=== PATIENT | female | born 1950 | race Caucasian/White ===

== ENCOUNTER → 2020-08-24 | Outpatient (CLI) | payer MEDICARE ==
--- NOTE | 2020-08-24 13:26 | RADIOLOGY REPORT (SQ) ---
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 Images reviewed with lung, soft tissue and bone windows. Reconstructed coronal and sagittal MPR and MIP images reviewed. All images stored on PACS. All CT scanners at this facility use dose modulation, iterative reconstruction, and/or weight based d osing when appropriate to reduce radiation dose to as low as reasonably achievable (ALARA). [facility]: Dose Right [facility]: CareDose [facility]: Dose Right [facility]: Teradose 4D [facility]: [employer] CONTRAST TYPE AND DOSE: 100 mL Omnipaque 300- low osmolar. RENAL FUNCTION: Not recorded here. Refer to the technologist's notes. RADIATION DOSE: . LIMITATIONS: None. FINDINGS: LUNGS AND PLEURA: There is a 7.8 x 4.3 mm nodule in the lingula that is stable. Stable 4 mm nodule in the posterior aspect of the left lower lobe. No new pulmonary nodules. There is mild p leural nodularity seen posteriorly bilaterally. This is a new finding. HILAR AND MEDIASTINAL STRUCTURES: There are some calcified hilar and mediastinal nodes. There are so me new subcarinal lymph nodes. These measure 12 to 13 mm in short axis. HEART AND VASCULAR STRUCTURES: No aneurysm or dissection. No central pulmonary emboli. No pericardi al effusion. HARDWARE: None in the chest. UPPER ABDOMEN: See separate report of the CT of the abdomen. THYROID AND OTHER SOFT TISSUES: No masses. No adenopathy. BONES: There is a sclerotic lesion in the right side of T10 vertebra. No other significant osseous f indings. OTHER: No other significant finding. IMPRESSION: 1. Stable small pulmonary nodules. 2. New subcarinal adenopathy concerning for metastatic disease. 3. Mild pleural nodularity seen bilaterally. This is a new finding. 4. Sclerotic lesion in the T10 vertebral on the right. TECHNICAL DOCUMENTATION: JOB ID: [id number] Quality ID # 436: Final reports with documentation of one or more dose reduction techniques (e.g., Au tomated exposure control, adjustment of the mA and/or kV according to patient size, use of iterative reconstruction technique) 2010 [employer]- All Rights Reserved Reading location - IP/workstation name: [email or web address]
--- NOTE | 2020-08-24 13:37 | RADIOLOGY REPORT (SQ) ---
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 c Oral contrast. Images reviewed with lung, soft tissue, and bone wi ndows. Reconstructed coronal and sagittal MPR images reviewed. Delayed images for evaluation of the u rinary system also acquired. All images stored on PACS. All CT scanners at this facility use dose modulation, iterative reconstruction, and/or weight based d osing when appropriate to reduce radiation dose to as low as reasonably achievable (ALARA). [facility]: Dose Right [facility]: CareDose [facility]: Dose Right [facility]: Teradose 4D [facility]: [employer] CONTRAST TYPE AND DOSE: contrast/concentration: Isovue 300.00 mmol/ml; Total Contrast Delivered: 100 .0 ml; Total Saline Delivered: 70.0 ml RENAL FUNCTION: Not recorded here. Refer to technologist's notes. RADIATION DOSE: CT Rad equipment meets quality standard of care and radiation dose reduction techniq ues were employed. CTDIvol: 11.0 - 21.6 mGy. DLP: 2697 mGy-cm.. LIMITATIONS: None. FINDINGS: LOWER CHEST: See separate report of the CT of the chest. LIVER: The liver is mildly hypoattenuating. No masses. SPLEEN: Normal size. No focal lesions. PANCREAS: No masses. No significant calcifications. No adjacent inflammation or peripancreatic fluid collections. Pancreatic duct not dilated. GALLBLADDER: No identified stones by CT criteria. No inflammatory changes to suggest cholecystitis. ADRENAL GLANDS: No significant masses or asymmetry. RIGHT KIDNEY AND URETER: Surgically absent. LEFT KIDNEY AND URETER: No solid masses. No significant calcifications. No hydronephrosis or hydr oureter. AORTA AND VESSELS: No aneurysm. No dissection. Renal arteries, SMA, celiac without stenosis. RETROPERITONEUM: No retroperitoneal adenopathy, hemorrhage or masses. BOWEL AND PERITONEAL CAVITY: Colonic diverticulosis with no acute inflammatory changes. No obvious b owel mass. APPENDIX: Surgically absent. PELVIS: No mass. No free fluid. Normal bladder. ABDOMINAL WALL: No masses. No hernias. BONES: Sclerotic lesion at T10. No other osseous lesions. OTHER: No other significant finding. IMPRESSION: No metastatic disease in the abdomen or pelvis. Mild hepatic steatosis. Diverticulosis coli. TECHNICAL DOCUMENTATION: JOB ID: [id number] Quality ID # 436: Final reports with documentation of one or more dose reduction techniques (e.g., Au tomated exposure control, adjustment of the mA and/or kV according to patient size, use of iterative reconstruction technique) 2010 [employer]- All Rights Reserved Reading location - IP/workstation name: [email or web address]
--- NOTE | 2020-08-24 13:55 | RADIOLOGY REPORT (SQ) ---
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 The route of agent administration: Intravenous. ADDITIONAL DRUGS AND DOSES: None. TECHNIQUE: Routine delayed images at 3 hours post radionuclide injection acquired of the bony skelet on including anterior and posterior whole-body projections and additional focused images as needed. LIMITATIONS: None. FINDINGS: BONES: There is focal uptake in the T10 vertebra on the right. There is a small area of f ocal uptake in the right side of the sacrum. There is uptake in the region of the left sacroiliac orlin int. There is focal uptake in the left greater trochanter. There is mild apparent degenerative upta ke in the thoracic and lumbar spine. KIDNEYS: Right kidney is absent. Normal excretion on the left. OTHER: No other significant finding. IMPRESSION: Metastatic disease at T10, the left greater trochanter, and in the sacrum. There appear s be degenerative uptake in the thoracic and lumbar spine. COMMENT: Quality measure 147: Current bone scan is compared with any available plain radiographs, p rior bone scans, and CT/MRI. TECHNICAL DOCUMENTATION: JOB ID: [id number] 2010 [employer]- All Rights Reserved Reading location - IP/workstation name: [email or web address]
== END ==
LOC: RAD 09:45
PROVIDERS: ATTEND Internal Medicine
DX: C50.811 Malignant neoplasm of overlapping sites of right female breast (principal); C79.51 Secondary malignant neoplasm of bone; E55.9 Vitamin D deficiency, unspecified; Z51.89 Encounter for other specified aftercare; K57.30 Diverticulosis of large intestine without perforation or abscess without bleeding
CPT/HCPCS: 82565; 78306; 71260; 74177; A9503; Q9969